=== PATIENT | male | born 1930 | race Caucasian/White ===

== ENCOUNTER 2016-06-19 10:07 | Inpatient (IN) | payer MEDICARE, OTHER ==
[~2016-06-19] VITALS: Ht 180.3 cm; Wt 66.2 kg
[~2016-06-19 10:07] MED LIST: ASA CHILDREN'S81 MG PO; CALCIUM + VITA1 EACH PO; CLONAZEPAM0.5 MG PO; FEOSOL-DPS325 MG PO; FOLVITE-DPS1 MG PO; KLONOPIN DPS0.5 MG PO; LANOXIN DPS0.125 MG PO; LASIX DPS20 MG PO; MICRO-K DPS10 MEQ PO; NITROSTAT0.4 MG SL; PANTOPRAZOLE SO40 MG PO; PRESERVISION A1 EAC2 PO; PROTONIX40 MG PO; RESTORIL DPS15 MG PO; TYLENOL EXTRA500 M1 PO; XARELTO15 MG PO; ZOCOR DPS20 MG PO; ZYLOPRIM-DPS300 MG PO; [UNRECOGNIZED DRUG - OTHER] PO
--- NOTE | 2016-06-21 13:10 | ER ---
ADMIT: 06/19/2016 RM/LOC: ER [facility] MR#: [id number] [address] [place], [place] [address] MYCHAL VAUGHN [address] [place] [address] Emergency Room Report SEX: M AGE: 86 : 1930 DATE: 06/19/2016 HISTORY OF PRESENT ILLNESS: An 86-year-old gentleman, comes to the Emergency Department with several days worth of increasing shortness of breath. He had an appendectomy done three weeks ago, has had difficulty breathing shortly thereafter, it is intensified over the past several days, this is mainly associated with exertion. PAST MEDICAL HISTORY: Significant for: 1. Vascular disease. 2. Heart disease. 3. Hypertension. 4. CHF. PAST SURGICAL HISTORY: 1. He has had cardiac stents and a CABG in the past. 2. Recent appendectomy. PHYSICAL EXAMINATION: GENERAL: Limited exam reveals an elderly gentleman, in no acute distress. LUNGS: Clear to auscultation bilaterally. CARDIOVASCULAR: Regular rate and rhythm. ABDOMEN: Soft, nontender. EXTREMITIES: Without clubbing, cyanosis, or edema. TWX OPERATOR: No focal findings. LABORATORY DATA: Pertinent labs; white count 10.4. Potassium 3.6. Glucose 168. D-dimer of 1.12. CTA of the chest revealed bilateral PEs. The patient is being admitted with pulmonary embolism. Aubrey Spencer MD/ rudi JOB #: [id number] CC: Aubrey Spencer MD, Attending Physician Narciso Tello MD, Family Physician
[2016-06-24] MEDS ORDERED: CARVEDILOL3.125 MG PO (14:19)
[2016-06-24] MEDS ORDERED: TYLENOL EXTRA500 M1 PO (14:20)
[2016-06-24] MEDS ORDERED: PRESERVISION L1 EACH PO (14:20)
[2016-06-24] MEDS ORDERED: LASIX DPS20 MG PO (14:21)
--- NOTE | 2016-09-07 11:55 | HP ---
ADMIT: 06/19/2016 RM/LOC: 409 [facility] MR#: [id number] [address] [address] MYCHAL VAUGHN [address] [place] [address] History and Physical SEX: M AGE: 86 : 1930 DATE OF SERVICE: 06/19/2016 CHIEF COMPLAINT: Pulmonary emboli. CLINICAL HISTORY: Kev came in with some vague symptomatology, was seen in the emergency room with increasing shortness of breath. He had a prior appendectomy three weeks ago, but noticed over the past several days increasing dyspnea on exertion. He is status post coronary artery disease. He has a history of mild congestive failure, but in the ER orchestrated CT scan demonstrated bilateral pulmonary emboli with bilateral pleural effusions. These were small multiple emboli in the periphery of the right pulmonary artery with one seen on the left side and these appeared to be subsegmental disease. There was fluid in the major fissure. A chest x-ray, showed cardiomegaly, and bilateral venous Doppler showed nonocclusive thrombus in the mid to distal left femoral vein, and normal on the right side. PHYSICAL EXAMINATION: GENERAL: Showed a white male, who is really not in much distress. HEAD AND NECK: Showed mild visual change, chronic; mild hearing loss, chronic. LUNGS: No dyspnea. Lung fraire were relatively clear. His oxygen concentration on O2 was normal. HEART: Otherwise without findings. ABDOMEN: Benign. His appendectomy scar was healed. EXTREMITIES: Really did not demonstrate edema or significant clot. NEUROLOGICAL: He was stable. IMPRESSION: 1. Bilateral small subsegmental pulmonary emboli. 2. Deep vein thrombosis, nonocclusive left upper thigh. 3. Chronic atrial fibrillation on Xarelto therapy 15 mg. 4. Pulmonary hypertension. 5. Orthostatic hypotension. 6. Chronic congestive failure. 7. Status post percutaneous coronary intervention. 8. Advanced degenerative arthritis, cervical and lumbar spine. TREATMENT: We will boost his Xarelto. Continue to follow him and treat what looks like a secondary congestive failure. Narciso Tello MD/ rudi JOB #: [id number] CC: Narciso Tello MD, Attending Physician Narciso Tello MD, Family Physician
--- NOTE | 2016-09-07 12:00 | DS ---
ADMIT: 06/19/2016 RM/LOC: 409 [facility] MR#: [id number] [address] [facility] [address] [place] [id number] MYCHAL VAUGHN [address] [facility] [place] [address] Discharge Summary SEX: M AGE: 86 : 1930 ADMISSION DATE: 06/19/2016 DISCHARGE DATE: 06/23/2016 DISMISSAL DIAGNOSES: 1. Bilateral small subsegmental pulmonary emboli. 2. Deep vein thrombosis, nonocclusive left upper thigh. 3. Chronic atrial fibrillation on Xarelto therapy 15 mg. 4. Pulmonary hypertension. 5. Orthostatic hypotension. 6. Chronic congestive failure. 7. Status post percutaneous coronary intervention. 8. Advanced degenerative arthritis, cervical and lumbar spine. 9. Pulmonary hypertension, mild. CLINICAL HISTORY: Kev was admitted with small subsegmental pulmonary emboli and a left upper thigh deep vein thrombosis without occlusion. He was brought in put at rest. We boosted his Xarelto 15 mg p.o. b.i.d. and felt much of this was related to his confinement for an appendectomy three weeks ago. We felt that this was a provoked rather than unprovoked clot episode. He was ultimately improved after a trial of Coreg and intermittent doses of Lasix and lisinopril, watching for severe orthostasis that he has had in the past. He was dismissed, improved. DISCHARGE MEDICATIONS: 1. Continue with oxygen 2 L. 2. Coreg 3.125 b.i.d. 3. Ferrous sulfate 325 mg daily. 4. Folvite 1 mg daily. 5. Lanoxin 0.125 daily. 6. Lasix 20 mg two times a week and p.r.n. 7. KCl 10 mEq with each Lasix dose. 8. Protonix 40 mg daily. 9. PreserVision daily. 10.Xarelto 15 mg b.i.d. 11.Zocor 20 mg daily. 12.Zyloprim 300 mg daily. DISCHARGE RECOMMENDATIONS: He will see us in followup, and continue his oxygen. Narciso Tello MD/ rudi JOB #: [id number] CC: Narciso Tello MD, Attending Physician Narciso Tello MD, Family Physician
== END 2016-06-23 14:37 | disposition home or self-care (01) | DRG 175 ==
LOC: ER 10:07 → 4PCU 12:50
PROVIDERS: ADMIT Internal Medicine
DX: I26.99 Other pulmonary embolism without acute cor pulmonale (principal); I50.43 Acute on chronic combined systolic (congestive) and diastolic (congestive) heart failure; I27.2 Other secondary pulmonary hypertension; I82.412 Acute embolism and thrombosis of left femoral vein; I48.2 Chronic atrial fibrillation; I11.0 Hypertensive heart disease with heart failure; M47.9 Spondylosis, unspecified; M19.012 Primary osteoarthritis, left shoulder; M19.011 Primary osteoarthritis, right shoulder; Z95.1 Presence of aortocoronary bypass graft; Z95.5 Presence of coronary angioplasty implant and graft; Z98.890 Other specified postprocedural states

== ENCOUNTER 2016-07-12 12:04 | Inpatient (IN) | payer MEDICARE, OTHER ==
[~2016-07-12] VITALS: Ht 180.3 cm; Wt 63.4 kg
--- NOTE | ~2016-07-12 | ECH ---
Transthoracic Echocardiography Report (TTE) Demographics Patient Name MYCHAL VAUGHN Date of Study 07/12/2016 Patient Number [id number] Visit Number [id number] Date of 1930 Room Number 404 Accession Number [id number] Gender Male Age 86 year(s) Referring Elisha Robin MD Suspect Artist Rosita Myrick [facility] Physician Physician Interpreting Orquidea Robles Coater Helper Physician Supervising Ordering Physician Elisha Robin MD/[facility] Nurse Stress Dive Superintendent Conclusions Summary Technically fair exam. The estimated left ventricular ejection fraction is 25-30%. Mild to moderate left ventricular hypertrophy. The left atrium is severely dilated by LA volume index measurement. There is mild aortic regurgitation by color Doppler. ormal appearing tricuspid valve. Mild tricuspid regurgitation by color Doppler. There is mild pulmonary hypertension. The pulmonary pressure (RVSP) is 40 mmHg. Procedure Type of Study TTE procedure:Echo Complete SF. Procedure Date Date: 07/12/2016 Start: 03:34 PM Technical Quality: Fair Indications:Congestive heart failure and Atrial fibrillation. Appropriate Use Criteria: 9 Height: 66 inches Weight: 145 pounds BSA: 1.74 m Rhythm: Paced HR: 70 bpm BP: 133/74 mmHg M-Mode/2D Measurements LV Diastolic Dimension: 5.55 cm LV Systolic Dimension: 4.89 cm LV Septum Diastolic: 1.65 cm LV PW Diastolic: 1.29 cm AO Root Dimension: 2.76 cm Cardiac Output: 1.75 l/min LA Dimension: 5.18 cm Cardiac Index: 1.01 l/min*m LA volume index: 52 ml/m LVOT: 1.92 cm RV Base: 3.2 cm LVOT VTI: 8.64 cm RV Mid: 1.9 cm LV Stroke volume: 25 ml RV Length: 6.4 cm LV Stroke volume index: 14.37 ml/m Doppler Measurements AV Peak Velocity: 1 m/s MV Peak E-Wave: 1.01 m/s AV Peak Gradient: 4 mmHg MV Peak A-Wave: 0.29 m/s AV Mean Gradient: 3.22 mmHg MV E/A Ratio: 3.51 LVOT Peak Velocity: 0.57 m/s MV P1/2t: 38.2 msec AV Area (Continuity):1.56 cm MV Deceleration Time: 131.8 msec TR Velocity:2.95 m/s MV Area (PHT): 5.76 cm TR Gradient:34.8 mmHg PV Peak Velocity: 0.72 m/s Estimated RAP:5 mmHg PV Peak Gradient: 2.06 mmHg Estimated RVSP: 40 mmHg Estimated PASP: 39.8 mmHg RA Area: 15.04 cm Findings Left Ventricle The left ventricle is normal in size . Mild to moderate left ventricular hypertrophy. Diastolic function indeterminate due to patient's arrhythmia. Right Ventricle Normal right ventricle structure and function. Device lead noted in the right ventricle. Left Atrium The left atrium is severely dilated by LA volume index measurement. Right Atrium Normal right atrial size. Device lead seen in the right atrium. Mitral Valve Normal mitral valve structure and function. Moderate thickening of the mitral valve leaflets. Mild to moderate mitral annular calcification. Mild-moderate mitral regurgitation by color Doppler. Aortic Valve Normal aortic valve structure and function. The aortic valve is mildly sclerotic. There is mild aortic regurgitation by color Doppler. Tricuspid Valve Normal appearing tricuspid valve. Mild tricuspid regurgitation by color Doppler. There is mild pulmonary hypertension. The pulmonary pressure (RVSP) is 40 mmHg. Pulmonic Valve Normal pulmonic valve structure and function. Pericardial Effusion No evidence of pericardial effusion. Miscellaneous Visualized portions of the aortic root and ascending aorta appear normal in size. Pleural Effusion No evidence of pleural effusion. Contractility Score LV regional wall motion:(0-Non visualized 1-Normal 2-Hypokinesis 3-Akinesis 4-Dyskinesis 5-Aneurysm) Signature
[~2016-07-12 12:04] MED LIST changes: +CARVEDILOL3.125 MG PO; +PRESERVISION L1 EACH PO
[2016-07-15] MEDS ORDERED: PROTONIX40 MG PO (20:47)
[2016-07-15] MEDS ORDERED: ZOCOR DPS20 MG PO (20:48)
[2016-07-15] MEDS ORDERED: FEOSOL-DPS325 MG PO (20:48)
[2016-07-15] MEDS ORDERED: XARELTO20 MG PO (20:48)
[2016-07-15] MEDS ORDERED: LANOXIN DPS0.125 MG PO (20:48)
[2016-07-15] MEDS ORDERED: TOPROL XL DPS25 MG PO (20:48)
[2016-07-15] MEDS ORDERED: NITROSTAT0.4 MG SL (20:48)
[2016-07-15] MEDS ORDERED: PRESERVISION A1 EACH PO (20:49)
[2016-07-15] MEDS ORDERED: LASIX DPS40 MG PO (20:49)
[2016-07-15] MEDS ORDERED: FOLVITE-DPS1 MG PO (20:49)
[2016-07-15] MEDS ORDERED: ZYLOPRIM-DPS300 MG PO (20:49)
[2016-07-15] MEDS ORDERED: KLOR-CON 1010 MEQ PO (20:49)
--- NOTE | 2016-07-22 10:36 | CO ---
ADMIT: 07/12/2016 RM/LOC: 404 [facility] MR#: [id number] [address] [address] GIO VAUGHN [address] [place] [address] Consultation SEX: M AGE: 86 : 1930 DATE OF CONSULTATION: 07/12/2016 ATTENDING PHYSICIAN: Narciso Tello MD CONSULTING PHYSICIAN: Silvio Heard MD REASON FOR CONSULTATION: Congestive heart failure, increased shortness of breath. HISTORY OF PRESENT ILLNESS: Gio is a pleasant 86-year-old male, who has had some increasing problems with shortness of breath lately. Last night, he had acute increase in shortness of breath and chest pain. He was unable to sleep or lie flat. By this morning, the symptoms seem to have subsided. He followed up at his primary care physician's office, and there was concern for worsening heart failure, so he was admitted for further workup and management. Gio believes that metoprolol is causing these problems. He states that he has had problems with tolerating carvedilol in the past and that had since been discontinued. He recently started taking the metoprolol on July 08 and states these symptoms have been happening in the evening after taking the medication. He is currently not having any problems with ongoing chest pain or shortness of breath. He has felt a little off balance, but has not had any syncopal episodes lately. CARDIAC HISTORY AND RISK FACTORS: Gio has an extensive cardiac history and he has been managed through our office under the care of Dr. Chowdhury. He has a history of coronary artery disease with 3-vessel bypass in 2011. 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 He has chronic congestive heart failure. Cardiomyopathy with most recent ejection fraction of 30% in 2015. That echocardiogram revealed moderate pulmonary hypertension. He has a history of hypertension and hyperlipidemia. The patient also states that he has had arterial stents placed in both legs, however, there are no records available to confirm that. Gio states that he will occasionally smoke a cigar. He has done this for many years. He is not diabetic. He has no known family history significant for heart disease or diabetes. He does have think that his father suffered from a stroke at age 90. PAST MEDICAL HISTORY: Significant cardiac history as detailed above, peripheral neuropathy, anemia with history of gastric ulcers, shoulder pain, gout, acid reflux disease, recent ruptured appendicitis, bilateral pulmonary emboli in May of 2016. PAST SURGICAL HISTORY: Appendectomy, prior bypass surgery, arterial stenting in his legs. ALLERGIES: PENICILLIN. ADMIT: 07/12/2016 RM/LOC: 404 [facility] MR#: [id number] [address] [address] [address] [place] [address] Consultation SEX: M AGE: 86 : 1930 HOME MEDICATIONS: 1. Pantoprazole. 2. Ferrous sulfate. 3. Simvastatin 20 mg daily. 4. Xarelto 15 mg twice daily. 5. Metoprolol 25 mg daily. 6. Digoxin 0.125 mg daily. 7. Nitro-Stat as needed. 8. Potassium chloride. 9. Furosemide 20 mg daily. 10.Folic acid. 11.Allopurinol. 12.Clonazepam as needed. 13.Tylenol as needed. 14.PreserVision. FAMILY HISTORY: No significant family history reported per the patient aside from the patient's father with stroke at age 90. SOCIAL HISTORY: Gio denies consumption of caffeine and alcohol as well as nonprescription drugs. He is retired. 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 His is . He does a significant other for whom he has been with for the last 20 years. REVIEW OF SYSTEMS: GENERAL: Positive for fatigue. Denies fever, chills, sweats, rash, or weight loss. EYES: Positive for glaucoma. Denies double vision, blurred vision, or cataracts. ENT: Denies hearing loss or problems with nose, mouth or throat. PULMONARY: Denies cough, sputum production, asthma, emphysema or bronchitis. Denies snoring loudly, wakefulness at night, or fatigue upon awakening. GASTROINTESTINAL: Positive for history of stomach ulcers and acid reflux. Denies heartburn or difficulty swallowing. No change in bowel habits. Denies dark or bloody stools. No history of hiatal hernia, or gallbladder or liver disease. GENITOURINARY: Denies dysuria, hematuria, nocturia, urinary tract infection, or kidney stones. Denies history of renal insufficiency or failure. MUSCULOSKELETAL: Positive for arthritis and gout. Denies muscle or joint pains. ENDOCRINE: Denies history of thyroid dysfunction or diabetes. HEMATOLOGIC: Some history of anemia. Denies history of easy bruising or cancer. NEUROLOGIC: Positive for numbness and tingling in his fingers and toes. Denies chronic headaches, dizziness, syncope, stroke, or seizures. PSYCHIATRIC: Denies history of mental illness or feelings of depression. PHYSICAL EXAMINATION: VITAL SIGNS: Blood pressure 133/81, pulse 70, respirations 18, temperature 95.7, oxygen saturation 95%. ADMIT: 07/12/2016 RM/LOC: [address] [place] [address] MR#: [id number] [address] [place] [id number] GIO VAUGHN [facility] [place] [address] Consultation SEX: M AGE: 86 : 1930 GENERAL: He is alert and in no acute distress. SKIN: [place], warm and dry. Some bruising present. EYES: Sclerae clear. No xanthelasmas. ENT: Positive JVD. Oral mucosa is pink and moist. No carotid bruits. CHEST: Respirations are even and unlabored. Lungs are clear to auscultation. HEART: Regular rate and rhythm. Normal S1, S2. No murmurs, rubs or gallops. ABDOMEN: Soft and nontender. MUSCULOSKELETAL: Gait is normal. EXTREMITIES: Peripheral pulses palpable. No clubbing, cyanosis or edema. PSYCHIATRIC: Alert and oriented. Mood and affect are appropriate. DIAGNOSTIC STUDIES: WBC 6.6, hemoglobin 11.2, platelets 156, creatinine 1.1, BNP 10,287, bilirubin 1.8. EKG reveals ventricular-paced rhythm with no concerning ST changes. Chest x-ray is pending. Echocardiogram today is pending. ASSESSMENT: 1. [id number]-[id number] systolic heart failure. 2. Persistent atrial fibrillation. 3. Permanent pacemaker. 4. Coronary artery disease. 5. Ischemic cardiomyopathy. 6. Recent pulmonary emboli. PLAN: His symptoms have already begun to improve with diuresis. We will continue with IV Lasix and await results of his echocardiogram and chest x- ray. We will plan to interrogate his permanent pacemaker and evaluate if atrial fibrillation is new versus persistent causing his symptoms of acute systolic heart failure. We will plan to hold his beta-sid. We will also check his digoxin levels and repeat EKG tomorrow. We will continue to follow closely and monitor his progress. OCHOA Trent Student / Silvio Heard MD / rudi JOB #: [id number] CC: Narciso Tello MD, Attending Physician Narciso Tello MD, Family Physician
--- NOTE | 2016-09-26 10:33 | HP ---
ADMIT: 07/12/2016 RM/LOC: 404 [facility] MR#: [id number] [address] [address] LILYMYCHAL JOSE [address] [place] [address] History and Physical SEX: M AGE: 86 : 1930 DATE OF SERVICE: CHIEF COMPLAINT: Congestive failure. CLINICAL HISTORY: Ivan was recently here with pulmonary emboli and presented with increased dyspnea on exertion, PND, orthopnea, and rising BNP as an outpatient. He was weak. He was admitted with chest x-ray showing cardiomegaly. He was in chronic atrial fibrillation. His lung fraire were relatively clear. His O2 saturation at rest was 91% with any activity, probably desaturated. He has a history of labile blood pressure and quite low blood pressure but interestingly when he presented he was hypertensive. PHYSICAL EXAMINATION: Otherwise was unremarkable. IMPRESSION: 1. Congestive heart failure. 2. Recent pulmonary emboli, small not clinically significant currently. 3. Chronic atrial fibrillation. 4. Prior recent appendicitis. 5. Chronic anticoagulation. 6. History of low ejection fraction. 7. Degenerative arthritis lumbosacral and cervical spine. Narciso Tello MD/ renzol JOB #: [id number] CC: Narciso Tello MD, Attending Physician Narciso Tello MD, Family Physician
--- NOTE | 2016-09-26 10:33 | DS ---
ADMIT: 07/12/2016 RM/LOC: 404 [facility] MR#: [id number] [address] [facility] [address] [place] [id number] LAURAMYCHAL DOSHI [address] [facility] [place] [address] Discharge Summary SEX: M AGE: 86 : 1930 ADMISSION DATE: 07/12/2016 DISCHARGE DATE: 07/15/2016 1. Congestive heart failure. 2. Low EF with systolic and diastolic congestive failure. 3. Chronic atrial fibrillation. 4. Mild pulmonary hypertension. 5. Status post VVI pacemaker. CLINICAL HISTORY: The patient came in with congestive failure superimposed upon recent small peripheral pulmonary emboli following on the tails of a ruptured appendix. CTA demonstrated resolution nearly completely of his pulmonary emboli and an ultrasound was done of the abdomen was unremarkable. An outpatient chest x- ray demonstrated significant cardiomegaly with mild pulmonary edema and follow up was improved post diuresis. His blood pressure initially was elevated then returned to normal. At the time of dismissal, he was significantly improved, but still had a relatively low EF. He will follow with Cardiology who saw him during his inpatient stay. He was dismissed on: 1. Xarelto 20 mg daily. 2. Ferrous sulfate 325 mg daily. 3. Folvite 1 mg daily. 4. Lanoxin 0.125 daily. 5. Lasix 40 daily. 6. Micro-K 10 mEq t.i.d. 7. Protonix 40 mg daily. 8. Multivitamin daily. 9. Zocor 20 mg daily. 10.Zyloprim 300 mg at bedtime and will follow up with all at appropriate time. Narciso Tello MD/ rudi JOB #: [id number] CC: Narciso Tello MD, Attending Physician Narciso Tello MD, Family Physician . [facility]
== END 2016-07-15 15:55 | disposition home or self-care (01) | DRG 292 ==
LOC: 4PCU 12:04
PROVIDERS: ADMIT Internal Medicine
PROC: 4B02XSZ Measurement of Cardiac Pacemaker, External Approach (ICD-10-PCS; principal; 2016-07-12)
DX: I11.0 Hypertensive heart disease with heart failure (principal); I48.1 Persistent atrial fibrillation; G62.9 Polyneuropathy, unspecified; I50.43 Acute on chronic combined systolic (congestive) and diastolic (congestive) heart failure; I25.10 Atherosclerotic heart disease of native coronary artery without angina pectoris; I51.7 Cardiomegaly; M47.9 Spondylosis, unspecified; I25.5 Ischemic cardiomyopathy; E78.5 Hyperlipidemia, unspecified; K21.9 Gastro-esophageal reflux disease without esophagitis; Z95.1 Presence of aortocoronary bypass graft; Z95.0 Presence of cardiac pacemaker; Z72.0 Tobacco use; Z86.711 Personal history of pulmonary embolism; Z79.01 Long term (current) use of anticoagulants